=== PATIENT | female | born 1995 | race African-American/Black ===

== ENCOUNTER 2019-11-06 22:54 | Emergency (ER) | payer MEDICAID, OTHER ==
[~2019-11-06] VITALS: Ht 167.6 cm; Wt 98.0 kg
[~2019-11-06 22:54] MED LIST: ALBUTEROL
[2019-11-07] MEDS ORDERED: SODIUM CHLORIDE 0.9% 1,000 ML IV ONE (00:11)
[2019-11-07] MEDS ORDERED: ONDANSETRON HCL 4MG/2ML INJ IV ONE (00:15)
[2019-11-07] MEDS ORDERED: ACETAMINOPHEN 325MG TABLET PO ONE (00:15)
[2019-11-07] MEDS ORDERED: FAMOTIDINE 20MG TABLET PO ONE (00:15)
[2019-11-07 00:40] LABS: BASOPHILS % 0.9 % (0.0-2.0); EOSINOPHILS % 5.8 % (0.0-5.0); HEMATOCRIT. 36.8 % (36.0-48.0); HEMOGLOBIN. 12.2 g/dL (12.0-16.0); LYMPHOCYTES % 32.1 % (20.0-50.0); MEAN CORPUSCULAR HEMOGLOBIN 28.5 pg (28.0-32.0); MEAN CORPUSCULAR VOLUME 86.1 fL (81.0-99.0); MEAN PLATELET VOLUME 8.4 fl (7.4-10.4); MONOCYTES % 6.7 % (2.0-8.0); NEUTROPHILS % 54.5 % (40.0-76.0); PLATELET 330 x1000/uL (130-400); RED BLOOD CELL COUNT 4.27 mill/uL (4.2-5.4); RED CELL DISTRIBUTION WIDTH 14.5 % (11.6-14.6)
[2019-11-07 00:48] LABS: CHLORIDE 105 mEq/L (98-107)
[2019-11-07 01:13] LABS: B-HCG QUANTITATIVE 38414 mIU/mL (<3)
[2019-11-07 02:35] LABS: CLARITY URINE CLEAR (CLEAR); COLOR URINE YELLOW (YELLOW); KETONES URINE 1+ (NEGATIVE); LEUKOCYTE ESTERASE URINE NEGATIVE (NEGATIVE); NITRITE URINE NEGATIVE (NEGATIVE); OCCULT BLOOD URINE NEGATIVE (NEGATIVE); PH URINE 6.5 (4.5-8.0); PROTEIN URINE TRACE (NEGATIVE); SPECIFIC GRAVITY URINE 1.034 (1.005-1.030)
[2019-11-07 04:20] VITALS: BP 118/75
== END 2019-11-07 04:28 | disposition home or self-care (01) ==
LOC: ER 22:54
DX: O26.891 Other specified pregnancy related conditions, first trimester (principal); R10.13 Epigastric pain; R06.02 Shortness of breath; Z3A.01 Less than 8 weeks gestation of pregnancy
CPT/HCPCS: 36415; 76801; 76817; 80053; 81003; 81025; 83690; 84702; 85025; 93005; 96361; 96374; 99284; J2405; J7030; Z7610

== ENCOUNTER 2022-09-29 14:22 | Emergency (ER) | payer MEDICAID, OTHER ==
[~2022-09-29] VITALS: Ht 165.1 cm; Wt 78.0 kg
[2022-09-29] MEDS ORDERED: ALBUTEROL (0.083%) 2.5MG/3ML NEB HHN STA (16:09)
[2022-09-29] MEDS ORDERED: ACETAMINOPHEN 325MG TABLET PO ONE (16:15)
[2022-09-29 18:49] VITALS: BP 116/73
[2022-09-29] MEDS ORDERED: TAM75 MT (18:51)
[2022-09-29] MEDS ORDERED: IBUP-2028 MT (18:51)
== END 2022-09-29 18:58 | disposition home or self-care (01) ==
LOC: ER 14:22
DX: J45.901 Unspecified asthma with (acute) exacerbation (principal); J10.1 Influenza due to other identified influenza virus with other respiratory manifestations; Z20.822 Contact with and (suspected) exposure to COVID-19
CPT/HCPCS: 71045; 81025; 87426; 87804; 94640; 99284; Z7610